=== PATIENT | female | born 1960 | race Caucasian/White ===

== ENCOUNTER → 2018-08-24 | Outpatient (CLI) | payer OTHER ==
--- NOTE | 2018-08-30 13:15 | MR ---
EXAMINATION TYPE: MR shoulder arthrogrm RT w co DATE OF EXAM: 08/24/2018 COMPARISON: None HISTORY: Labral tear right shoulder, pain and limited movement. In discussion with the patient additi onal history provided is that of glenoid labral tear versus intra-articular osseous body. TECHNIQUE: Multiplanar, multisequence images of the right shoulder is performed with 1 mL intravenous Gadavist gadolinium contrast. FINDINGS: Volume of contrast within the joint space appears inadequate for evaluation of the labrum. Recommend repeat arthrogram with MRI at no additional charge to the patient. Rotator Cuff: No tendon or muscle retraction is evident. No definite rotator cuff tear is identified. Perforation is not excluded. Acromioclavicular Joint: There is mild hypertrophy present. Glenohumeral Joint: Humerus articulates with the glenoid. Labrum: Glenoid labrum is not as well evaluated without significant contrast within the joint space. For better evaluation repeat arthrogram MRI is recommended. This can be performed at no additional ch arge to the patient. Biceps Tendon: The long head of biceps is in normal location within bicipital groove. Small amount of fluid is adjacent Bone marrow signal: No focal abnormal marrow signal is appreciated. Other: No additional significant abnormality is appreciated. IMPRESSION: 1. Adequate Contrast within the joint space is felt to be limited for good evaluation of the glenoid labrum. Repeat MRI with arthrogram is recommended and can be performed at no additional charge to the patient. 2. Within the limits of this exam, significant changes are not evident.
--- NOTE | 2018-08-30 13:40 | FL ---
Fluoroscopy INDICATION: Ankle, right shoulder arthrogram, labral tear FINDINGS: Fluoroscopy time: 43 seconds. Images obtained: 2. PROCEDURE: The procedure was explained to the patient, the risks complications and benefits. All ques tions were answered. Informed consent was obtained. A timeout was performed. The skin was cleansed with Betadine. The skin and deeper tissue was anesthetized with 1% lidocaine. U nder fluoroscopic guidance a 22-gauge spinal needle was advanced into the joint space. Small amount o f Isovue contrast was placed without resistance which appear to be within the joint space. Following this the catheter was exchanged for gadolinium diluted contrast which was placed without resistance i nto the joint space. The stylet was replaced and the needle withdrawn. The patient tolerated procedur e very well. FINDINGS: Findings are pending MRI results. Please see MRI report same date. IMPRESSIONS: 1. Documentation of fluoroscopy. 2. Right shoulder arthrogram for contrast placement.
== END | disposition home or self-care (01) ==
LOC: RADFLMAIN 13:16
PROVIDERS: ATTEND Orthopaedic Surgery
DX: S43.401A Unspecified sprain of right shoulder joint, initial encounter (principal)
CPT/HCPCS: 23350; 73040; 73222; A9585; Q9966